=== PATIENT | female | born 1995 | race African-American/Black ===

== ENCOUNTER 2025-05-06 17:49 | Emergency (ER) | payer OTHER ==
[~2025-05-06] VITALS: Ht 162.6 cm; Wt 82.1 kg
[2025-05-06 18:49] LABS: PLATELET COUNT (AUTO) 239 K/uL (150-450); RED BLOOD CELL COUNT(AUTO) 4.52 MIL/uL (4.0-5.2); RED CELL DISTRIBUTION WIDTH 14.0 % (11.5-15.0); WHITE BLOOD COUNT (AUTO) 15.5 K/uL (4.3-11.0)
[2025-05-06 18:58] LABS: CALCIUM, SERUM 9.1 mg/dL (8.5-10.1); CREATININE 1.1 mg/dL (0.6-1.3); SODIUM SERUM 139.0 mmol/L (136-145); UREA NITROGEN, BLOOD 15.0 mg/dL (7-18)
[2025-05-06 18:59] LABS: APPEARANCE,URINE SLIGHTLY CLOUDY (CLEAR); BLOOD, URINE 2+ Ery/uL (NEGATIVE); LEUKOCYTE ESTERASE ,URINE 3+ (NEGATIVE); NITRITE, URINE POSITIVE (NEGATIVE); UGLUCOSE NEGATIVE (NEGATIVE)
[2025-05-06 19:00] LABS: PREGNANCY TEST URINE QUAL NEGATIVE (NEGATIVE)
[2025-05-06 19:04] LABS: ASPARTATE AMINOTRANSFERASE 20.0 U/L (15-37); TOTAL PROTEIN, SERUM 7.9 g/dL (6.4-8.2)
[2025-05-06 19:10] LABS: ADD URINE CULTURE YES; SQUAMOUS EPITHELIAL CELL,UR Moderate /HPF (None Seen)
[2025-05-06] MEDS ORDERED: IOHEXOL-300 100 ML VIAL IV ONE (19:26)
[2025-05-06] MEDS ORDERED: IV NS 0.9% 250 ML IV ONE (19:27)
[2025-05-06] MEDS ORDERED: CT SWABBABLE VALVE TRANS SET 1 EA INFUS.SET MC ONE (19:27)
[2025-05-06] MEDS ORDERED: KETOROLAC TROMETHAMINE 15 MG/ML VIAL ONE (19:32)
[2025-05-06] MEDS: IV NS 0.9% 1,000 ML BAG IV ONE (19:35)
[2025-05-06] MEDS: KETOROLAC TROMETHAMINE 15 MG/ML VIAL IV ONE (19:35)
[2025-05-06] MEDS ORDERED: CEPH500C2 PO (21:17)
[2025-05-06] MEDS ORDERED: CEFTRIAXONE 1GM BAG (ER ONLY) 50 ML IV ONE (21:21)
[2025-05-06] MEDS: CEFTRIAXONE 1GM BAG (ER ONLY) 1 GM/50 ML PIGGYBACK IV ONE (21:23)
[2025-05-06 21:37] VITALS: BP 134/79; TEMP 98.8; O2SAT 98
== END 2025-05-06 21:37 | disposition home or self-care (01) ==
LOC: ER 17:49
DX: N39.0 Urinary tract infection, site not specified (principal); E28.2 Polycystic ovarian syndrome
CPT/HCPCS: 99285; 74177; 96365; 76856; 96361; 96366; 96375; 85025; 80048; 83690; 80076; 84703; 81001; 36415; J1885; J7050; J0696; Q9967